=== PATIENT | male | born 1990 | race Hispanic/Latino ===

== ENCOUNTER 2023-07-25 12:30 | Observation (INO) | payer OTHER, SELFPAY ==
[2023-07-25] VITALS (12 sets, daily range): BP systolic 109–131; BP diastolic 53–71; PULSE 71–102; RESP 14–18; TEMP 36.6–37.7; O2SAT 96–100; BMI 29.3; BMI 29.9
--- NOTE | 2023-07-25 12:45 | CT_ITS ---
STUDY: CT ABDOMEN AND PELVIS WITH CONTRAST REASON FOR EXAM: Male, 32 years old. Right lower quadrant pain RADIATION DOSAGE (If Supplied By Facility): CTDIvol = ( 12.07 ) mGy, DLP = ( 573.80 ) mGycm TECHNIQUE: Transaxial images were obtained from the dome of the diaphragm to the symphysis pubis without oral contrast. IV 100mL Isovue-370 was administered. Sagittal and coronal images were reconstructed. Individualized dose optimization techniques were used for this CT. COMPARISON: None. FINDINGS: The visualized lung bases are unremarkable. The visualized portions of the heart are within normal limits. Normal liver. Normal gallbladder and extrahepatic biliary system. Normal spleen. Normal pancreas. Normal bilateral adrenal glands. Normal right kidney. Normal left kidney. Normal visualized stomach. Normal small intestine. Normal colon, hyperdensity within the cecum likely represents ingested medication. . There is a tubular, thick-walled appendix (>7mm), consistent with acute appendicitis. Additionally, there is evidence of a 5.5 mm appendicolith along with pericolonic inflammatory stranding and reactive right lower quadrant lymph nodes measuring less than 1 cm in short axis dimension. No perforation or abscess is noted. The abnormal appendix is seen on axial images 70-76 and coronal recon images 36-46 Normal abdominal aorta. Normal inferior vena cava. Normal retroperitoneum. Normal urinary bladder. Small amount of free fluid in the dependent pelvis. Normal abdominal wall. Normal osseous structures. CT/Abdomen/Pelvis W IV Cont ONLY IMPRESSION: Acute appendicitis with periappendiceal inflammation, likely reactive lymph nodes and appendicolith. No perforation or abscess noted. Surgical consultation recommended. N.B. : The above Results were Read Back by Elias Olvera MD to Sulaiman Cronin MD, and understanding confirmed on 07/25/2023 14:00:33 (ET). Electronically Signed: Elias Olvera MD at 14:01 EDT ,
[2023-07-25] MEDS: 0.9% Normal Saline (1000mL) 1,000 ML 999 ML IV (12:56)
[2023-07-25] MEDS: Ondansetron 4 MG/2 ML Vial IV (12:56)
[2023-07-25] MEDS: Ketorolac 15 MG/ML Vial IV ×2 (12:56→18:19)
[2023-07-25 13:08] LABS: Absolute Lymphocyte Count 1.97 X10^3/uL (0.83-4.51); Absolute Neutrophil Count 12.4 X10^3/uL (2.0-7.7); Basophil# 0.02 X10^3/uL; Basophil% 0.1 % (0-1); Eosinophil# 0.02 X10^3/uL; Eosinophils% 0.1 % (0-5); Hematocrit 43.4 % (40-54); Hemoglobin 14.9 g/dL (13.0-16.5); Lymphocyte # 1.97 X10^3/ul (0.83-4.51); Lymphocyte % 12.7 % (19-41); Mean Corp Hgb Conc 34.3 g/dL (32-36); Mean Corpuscular Volume 84.6 fL (80-94); Mean Platelet Vol. 9.9 fl (6.2-12.0); Monocyte# 1.07 X10^3/uL; Monocyte% 6.9 % (0-10); NRBC Flagged by Analyzer 0 % (0-5); Neutrophil # 12.41 X10^3/uL (2.7-7.7); Neutrophil % 79.9 % (47-70); Platelet Count 210 K/mm3 (150-450); RBC Distribution Width CV 12.1 % (11.6-14.6); RBC Distribution Width SD 37.2 fl (35.1-43.9); Red Blood Count 5.13 M/mm3 (4.6-6.2); White Blood Count 15.5 K/mm3 (4.4-11.0)
--- NOTE | 2023-07-25 13:09 | EDS_ITS ---
HPI <EFRAIN Ya - Last Filed: 07/25/23 14:44> History of Present Illness Chief Complaint: Abd Pain Narrative Narrative: 32-year-old male with no significant medical history who presents to the emergency department 3 days of worsening pain of the right lower abdomen. Patient states that the pain has become more constant, he has lost his appetite, patient eats when he walks is worse. He went to the [facility] clinic across the street, he was referred here to the emergency department for further workup. Patient denies any nausea or vomiting, fever or chills. Patient states he does have decreased appetite, as well as pain worse with moving. PFSH <EFRAIN Ya - Last Filed: 07/25/23 14:44> [facility] Medical History no medical history Home Medications ?Medication ?Instructions ?Recorded ?Last Taken ?Type omeprazole 20 mg capsule,delayed 20 mg PO DAILY 07/25/23 Unknown History release Allergy/AdvReac Type Severity Reaction Status Date / Time No Known Allergies Allergy Verified 07/25/23 12:31 Surgical History no surgical history Social History Smoking Status: Never smoker ROS <EFRAIN Ya - Last Filed: 07/25/23 14:44> ROS ED ROS Narrative Constitutional: Negative for fever, chills, weight loss, weakness Eyes: Negative for vision loss, vision change, double vision ENT: Negative for any sore throat, ear pain, congestion Cardiovascular: Negative for any chest pain, tightness, palpitations Respiratory: Negative for any cough, sputum production, hemoptysis, dyspnea, dyspnea on exertion, orthopnea Gastrointestinal: Negative for any nausea, vomiting, diarrhea, constipation, blood in stool, blood in vomit. Positive for abdominal pain, lack of appetite : Negative for any urinary frequency, dysuria, retention, blood in urine Muscle skeletal: Negative for any neck pain, back pain Neurological: Negative for any headache, syncope, dizziness Skin: Negative for any rashes, itching, abrasions, lacerations Psychiatric: Negative for any depression, anxiety, stress, suicidal ideation, homicidal ideation Hematologic: Negative for any excessive bruising, easy bleeding EXAM <EFRAIN Ya - Last Filed: 07/25/23 14:44> Physical Exam Narrative Exam Narrative: Vital signs reviewed. HEET: Head normocephalic atraumatic, TMs clear bilaterally. Posterior pharynx is clear, moist mucous membranes. Nares clear bilaterally. Neck: Supple with no lymphadenopathy or tenderness. No signs of meningismus. Cardiac: Regular rate and rhythm no murmurs gallops or rubs, equal peripheral pulses bilaterally. Respiratory: Lungs clear to auscultation bilaterally. No chest tenderness. Abdomen: Soft, tenderness to the right lower quadrant, no peritoneal signs, nondistended. No abdominal bruit or pulsatile masses. No hepatosplenomegaly Extremities: No peripheral edema, no signs of gross trauma or deformity. Active full range of motion of all extremities. Neuro: Cranial nerves II through XII intact, no focal neurological deficits. Skin: Clean dry and intact with no rash, purpura, petechiae, vesicles or pustules. Backs/flank: No CVA tenderness, no midline spinal tenderness, no deformity. Psych: Normal mood and affect. No SI, HI or acute psychosis. Const Vital Signs: 07/25/23 12:31 07/25/23 14:11 Temperature 98.8 F 98.6 F Temperature Source Temporal Oral Pulse Rate 102 H 94 Respiratory Rate 18 14 Blood Pressure 129/63 H 120/65 Blood Pressure Mean 85 83 Blood Pressure Source Monitor Blood Pressure Position Supine Blood Pressure Location Right Arm Pulse Ox 98 96 Oxygen Delivery Method Room Air Room Air <Dr. Samson Brown DO - Last Filed: 07/25/23 14:42> Physical Exam Const Vital Signs: 07/25/23 12:31 07/25/23 14:11 Temperature 98.8 F 98.6 F Temperature Source Temporal Oral Pulse Rate 102 H 94 Respiratory Rate 18 14 Blood Pressure 129/63 H 120/65 Blood Pressure Mean 85 83 Blood Pressure Source Monitor Blood Pressure Position Supine Blood Pressure Location Right Arm Pulse Ox 98 96 Oxygen Delivery Method Room Air Room Air LILLY <EFRAIN Ya - Last Filed: 07/25/23 14:44> [facility] Lab Data Labs: Laboratory Results - last 24 hr 07/25/23 12:55 WBC 15.5 H RBC 5.13 Hgb 14.9 Hct 43.4 MCV 84.6 MCH 29.0 MCHC 34.3 RDW Std Deviation 37.2 RDW Coeff of Glynn 12.1 Plt Count 210 MPV 9.9 Immature Gran % (Auto) 0.300 Neut % (Auto) 79.9 H Lymph % (Auto) 12.7 L Millard % (Auto) 6.9 Eos % (Auto) 0.1 Baso % (Auto) 0.1 Absolute Neuts (auto) 12.4 H Absolute Lymphs (auto) 1.97 Nucleated RBC % 0 Sodium 137 Potassium 3.8 Chloride 103 Carbon Dioxide 26.0 Anion Gap 8 BUN 15 Creatinine 0.92 Estim Creat Clear Calc 111.28 Est GFR (MDRD) Af Amer 122 Est GFR (MDRD) Non-Af 100 BUN/Creatinine Ratio 16.3 Glucose 116 H Calcium 8.6 Total Bilirubin 0.80 AST 18 ALT 30 Alkaline Phosphatase 96 Total Protein 7.6 Albumin 3.7 Globulin 3.9 Albumin/Globulin Ratio 0.9 Lipase 30 Radiography Diagnostic Testing: Clinical Impression(s) from Imaging Studies Abdomen/Pelvis CT 07/25/23 12:45 IMPRESSION: Acute appendicitis with periappendiceal inflammation, likely reactive lymph nodes and appendicolith. No perforation or abscess noted. Surgical consultation recommended. N.B. : The above Results were Read Back by Elias Olvera MD to Sulaiman Cronin MD, and understanding confirmed on 07/25/2023 14:00:33 (ET). Electronically Signed: Elias Olvera MD at 14:01 EDT , ADDENDUM: 07/25/23 1408 IMPRESSION: Acute appendicitis with periappendiceal inflammation, likely reactive lymph nodes and appendicolith. No perforation or abscess noted. Surgical consultation recommended. N.B. : The above Results were Read Back by Elias Olvera MD to Sulaiman Cronin MD, and understanding confirmed on 07/25/2023 14:00:33 (ET). Electronically Signed: Elias Olvera MD at 14:01 EDT , Treatment and Re-Evaluation :: Differential diagnosis includes however is not limited to: Acute appendicitis, diverticulitis, bowel obstruction, GI viral illness, Patient appears to be in no obvious respiratory distress vital signs are stable, patient is nontoxic-appearing. Presenting to the emergency department with 3 days of worsening right lower quadrant abdominal pain. Patient will receive basic laboratory values including CBC CMP lipase, patient will receive IV fluids, Zofran and Toradol. CT scan of the abdomen pelvis with IV contrast will be obtained looking for any surgical emergency. All radiologic examinations were read, reviewed by the emergency department attending. From these reads, a plan of care will be put in place. Patient's laboratory values showed a leukocytosis with a white blood count of 15.5, patient's glucose 116, lipase of 30. Patient CT scan shows acute appendicitis with periappendiceal inflammation, likely reactive lymph nodes and appendicolith. No perforation or abscess noted. I spoke with Dr. Marlen Bourne who will come and see the patient. Patient started on IV Zosyn. <Dr. Samson Brown, DO - Last Filed: 07/25/23 14:42> [facility] History & Record Review Discussion w/independent historian: Patient Lab Data Attestation: I reviewed the patient's lab results. Labs: Laboratory Results - last 24 hr 07/25/23 12:55 WBC 15.5 H RBC 5.13 Hgb 14.9 Hct 43.4 MCV 84.6 MCH 29.0 MCHC 34.3 RDW Std Deviation 37.2 RDW Coeff of Glynn 12.1 Plt Count 210 MPV 9.9 Immature Gran % (Auto) 0.300 Neut % (Auto) 79.9 H Lymph % (Auto) 12.7 L Millard % (Auto) 6.9 Eos % (Auto) 0.1 Baso % (Auto) 0.1 Absolute Neuts (auto) 12.4 H Absolute Lymphs (auto) 1.97 Nucleated RBC % 0 Sodium 137 Potassium 3.8 Chloride 103 Carbon Dioxide 26.0 Anion Gap 8 BUN 15 Creatinine 0.92 Estim Creat Clear Calc 111.28 Est GFR (MDRD) Af Amer 122 Est GFR (MDRD) Non-Af 100 BUN/Creatinine Ratio 16.3 Glucose 116 H Calcium 8.6 Total Bilirubin 0.80 AST 18 ALT 30 Alkaline Phosphatase 96 Total Protein 7.6 Albumin 3.7 Globulin 3.9 Albumin/Globulin Ratio 0.9 Lipase 30 Radiography Diagnostic Testing: Clinical Impression(s) from Imaging Studies Abdomen/Pelvis CT 07/25/23 12:45 IMPRESSION: Acute appendicitis with periappendiceal inflammation, likely reactive lymph nodes and appendicolith. No perforation or abscess noted. Surgical consultation recommended. N.B. : The above Results were Read Back by Elias Olvera MD to Sulaiman Cronin MD, and understanding confirmed on 07/25/2023 14:00:33 (ET). Electronically Signed: Elias Olvera MD at 14:01 EDT , ADDENDUM: 07/25/23 1408 IMPRESSION: Acute appendicitis with periappendiceal inflammation, likely reactive lymph nodes and appendicolith. No perforation or abscess noted. Surgical consultation recommended. N.B. : The above Results were Read Back by Elias Olvera MD to Sulaiman Cronin MD, and understanding confirmed on 07/25/2023 14:00:33 (ET). Electronically Signed: Elias Olvera MD at 14:01 EDT , Management Discussion w/another healthcare provider: Adjunct Physics Instructor (Surgery (Dr. Collier)) Treatment and Re-Evaluation :: Differential diagnosis includes however is not limited to: Acute appendicitis, diverticulitis, bowel obstruction, GI viral illness, Patient appears to be in no obvious respiratory distress vital signs are stable, patient is nontoxic-appearing. Presenting to the emergency department with 3 days of worsening right lower quadrant abdominal pain. Patient will receive basic laboratory values including CBC CMP lipase, patient will receive IV fluids, Zofran and Toradol. CT scan of the abdomen pelvis with IV contrast will be obtained looking for any surgical emergency. All radiologic examinations were read, reviewed by the emergency department attending. From these reads, a plan of care will be put in place. Patient's laboratory values showed a leukocytosis with a white blood count of 15.5, patient's glucose 116, lipase of 30. Patient CT scan shows acute appendicitis with periappendiceal inflammation, likely reactive lymph nodes and appendicolith. No perforation or abscess noted. I spoke with Dr. Marlen Bourne who will come and see the patient. Patient started on IV Zosyn. I have personally performed a face to face assessment of the patient and have reviewed the [facility] Note. I performed a substantive portion of the visit including all aspects of the following. My lopez findings include: History is 32-year-old male with states on Thursday evening after eating spicy dinner began to have some periumbilical pain. Pain is now migrated to the right lower quadrant. He was seen in urgent care yesterday and was started on ome prazole. He states the pain continues. He is worried about appendicitis. No fevers. Exam is guarding rebound tenderness in the right lower quadrant. Patient otherwise clinically appears well. Medical Decison Making CT is consistent with acute appendicitis. He has a 15,000 white count. Plan is to discuss with surgery and taken to the operating room. Antibiotics were ordered. Discharge Plan Dx/Rx/DC Orders Clinical Impression: Acute appendicitis, Abdominal pain Disposition Disposition: Acute Care Hospital [facility]
[2023-07-25 13:19] LABS: ALB/GLOB Ratio 0.9 RATIO (0.9-2.4); AST(SGOT) 18 U/L (15-37); Alanine Aminotransfer ALT/SGPT 30 U/L (16-61); Albumin, Serum 3.7 g/dL (3.2-5.0); Alkaline Phosphatase 96 U/L (45-117); Anion Gap 8 (5-15); BUN 15 mg/dL (7-18); BUN/Creat Ratio 16.3 RATIO (10-20); Calcium,Total 8.6 mg/dL (8.5-10.1); Chloride 103 mmol/L (98-107); Creatinine, Serum 0.92 mg/dL (0.70-1.30); EST Glomerular Filtration Rate 100 mL/min (>60); Est Glom Filt Rate - Afr Amer 122 mL/min (>60); Estimated Creatinine Clearance 111.28 ml/min; Globulin 3.9 g/dL (2.2-4.2); Glucose 116 mg/dL (74-106); Lipase 30 U/L (13-75); Potassium 3.8 mmol/L (3.5-5.1); Protein, Total 7.6 g/dL (6.4-8.2); Sodium Level 137 mmol/L (136-145)
[2023-07-25] MEDS: Piperacil/Tazobactam 4.5 GM in 0.9% Normal Saline (100mL MB+) 100 ML IV (14:09)
--- NOTE | 2023-07-25 14:49 | PCM.HP.STD ---
HPI - General HPI Narrative PRERNA NAVARRETE, is a 32 M who presents with abdominal pain of 3 days. He reports that it yesterday he felt a little warm but other than that denies fevers or chills. He reports no nausea or vomiting. Pain is in the right lower quadrant. PFSH Medical History no medical history Home Medications ?Medication ?Instructions ?Recorded ?Last Taken ?Type omeprazole 20 mg capsule,delayed 20 mg PO DAILY 07/25/23 Unknown History release Allergy/AdvReac Type Severity Reaction Status Date / Time No Known Allergies Allergy Verified 07/25/23 12:31 Surgical History no surgical history Social History Smoking Status: Never smoker ROS Constitutional Constitutional: Reports anorexia; Denies fever(s) Eyes Eyes: Denies blurry vision ENT HEENT: Denies abnormal hearing Cardiovascular Cardiovascular: Denies chest pain Respiratory/Chest Respiratory/Chest: Denies cough or dyspnea Gastrointestinal Gastrointestinal: Reports abdominal pain; Denies nausea or vomiting Genitourinary Genitourinary: Denies change in urinary stream Musculoskeletal Musculoskeletal: Denies abnormal gait Neurologic Neurologic: Denies abnormal gait Psychiatric Psychiatric: Denies anxiety Endocrine Endocrinology: Denies heat intolerance Vital Signs Vital Signs Vital Signs: 07/25/23 12:31 07/25/23 14:11 Temperature 98.8 F 98.6 F Temperature Source Temporal Oral Pulse Rate 102 H 94 Respiratory Rate 18 14 Blood Pressure 129/63 H 120/65 Blood Pressure Mean 85 83 Blood Pressure Source Monitor Blood Pressure Position Supine Blood Pressure Location Right Arm Pulse Ox 98 96 Oxygen Delivery Method Room Air Room Air Weight Weight: 176 lb 4.8 oz Body Mass Index (BMI) 29.3 Physical Exam Const oriented x3 and no apparent distress Resp normal respiratory effort GI soft to palpation Palpation: tender RLQ and Rovsing's sign Extremity normal to inspection Results Lab / Micro Data 07/25/23 12:55 07/25/23 12:55 Labs: Laboratory Results - last 24 hr 07/25/23 12:55: WBC 15.5 H, RBC 5.13, Hgb 14.9, Hct 43.4, MCV 84.6, MCH 29.0, MCHC 34.3, RDW Std Deviation 37.2, RDW Coeff of Glynn 12.1, Plt Count 210, MPV 9.9, Immature Gran % (Auto) 0.300, Neut % (Auto) 79.9 H, Lymph % (Auto) 12.7 L, Guadalupe % (Auto) 6.9, Eos % (Auto) 0.1, Baso % (Auto) 0.1, Absolute Neuts (auto) 12.4 H, Absolute Lymphs (auto) 1.97, Nucleated RBC % 0, Sodium 137, Potassium 3.8, Chloride 103, Carbon Dioxide 26.0, Anion Gap 8, BUN 15, Creatinine 0.92, Estim Creat Clear Calc 111.28, Est GFR (MDRD) Af Amer 122, Est GFR (MDRD) Non-Af 100, BUN/Creatinine Ratio 16.3, Glucose 116 H, Calcium 8.6, Total Bilirubin 0.80, AST 18, ALT 30, Alkaline Phosphatase 96, Total Protein 7.6, Albumin 3.7, Globulin 3.9, Albumin/Globulin Ratio 0.9, Lipase 30 Imaging Radiology Impression Abdomen/Pelvis CT 07/25/23 12:45 IMPRESSION: Acute appendicitis with periappendiceal inflammation, likely reactive lymph nodes and appendicolith. No perforation or abscess noted. Surgical consultation recommended. N.B. : The above Results were Read Back by Elias Olvera MD to Sulaiman Cronin MD, and understanding confirmed on 07/25/2023 14:00:33 (ET). Electronically Signed: Elias Olvera MD at 14:01 EDT Reading Location ID and State: [address] [place] [address] , Service support , ADDENDUM: 07/25/23 1408 IMPRESSION: Acute appendicitis with periappendiceal inflammation, likely reactive lymph nodes and appendicolith. No perforation or abscess noted. Surgical consultation recommended. N.B. : The above Results were Read Back by Elias Olvera MD to Sulaiman Cronin MD, and understanding confirmed on 07/25/2023 14:00:33 (ET). Electronically Signed: Elias Olvera MD at 14:01 EDT , Assessment & Plan Assessment/Plan (1) Acute appendicitis: QUALIFIERS: Acute appendicitis type: unspecified acute appendicitis type Qualified Code(s): K35.80 - Unspecified acute appendicitis PLAN: The patient has been having right upper quadrant pain. He came to the emergency room was found to have leukocytosis. CT scan revealed acute appendicitis with fecalith. I reviewed his CT findings with him and recommended laparoscopic appendectomy. I discussed this with him in detail. I discussed the risks including but not limited to bleeding, infection, injury other organs around the appendix such as the bowel, bladder or ureter. Patient understands all the risks and is willing to proceed. Tyler Collier MD Pager: [facility] [address] [place] [address], [address] [place] [address] Office:
--- NOTE | 2023-07-25 15:20 | APP_PTH ---
PATIENT: PRERNA COOLEY LOC: MS3 U#:[id number] AGE/SX: 32/M ROOM: TX317 RE07/25/[address]: Dr. Tyler Collier MD : 1990 BED: 1 DIS: 07/26/2023 SPEC #: [id number] RECD: 07/28/23 09:53 STATUS: [place] #: [id number] PALMA: 07/25/23 15:[address]: Tyler Collier DEPT: SURGICAL PATHOLOGY RECD BY: eRnzo Varghese ENTERED: 07/28/23 13:13 SP TYPE: APPENDIX OTHR DR: No Primary Care Phys Tissues: Appendix, NOS Procedures: Surgery Specimen Level III HEADER OPERATION: Laparoscopic, appendectomy PRE-OP DIAGNOSIS: Acute appendicitis TISSUE SUBMITTED: Appendix MICROSCOPIC DIAGNOSIS Appendix, appendectomy: Acute necrotizing appendicitis. Acute serositis. AM/mr 07/29/2023 MICROSCOPIC DESCRIPTION Slides are reviewed. GROSS DESCRIPTION Received in fixative is one container labeled with the patient's name and designated appendix. The specimen consists of a vermiform appendix measuring 7.5 cm in length and 1.0 cm in average diameter. No gross perforations are evident. Serial sections reveal a patent lumen with fecal material. No mass lesion is identified. Heddle Machine Operator sections are submitted in one cassette. / AM: 07/28/2023 TC:2 CPT: 98711
[2023-07-25] MEDS: Bupiv/Epi 0.25% 30 ML Vial (15:40)
--- NOTE | 2023-07-25 15:44 | OP.PCM_ITS ---
Report of Operation Date of Procedure: 07/25/23 Pre-Operative Diagnosis: Acute appendicitis Post-Operative Diagnosis: Same Surgery/Procedure Performed:: Laparoscopic appendectomy Description of Surgical Findings:: Inflamed appendix Type of Anesthesia: General/Regional Specimen's removed: Appendix Estimated Blood Loss (mL): 5 Description of Procedure: The patient was brought into the operating room and general anesthesia was induced. The left arm was tucked and the abdomen was prepped and draped in usual sterile fashion. A small midline incision was made superior to the umbilicus and deepened to the level of the fascia. The fascia was elevated and incised. The peritoneum was also elevated and incised. A finger sweep was performed and a balloon trocar was placed into the abdomen and inflated. The abdomen was insufflated to 15 mmHg and the camera was inserted and the abdomen was inspected for any injuries upon entering the abdomen. There were none. The patient was placed in Trendelenburg position and a 5 mm ports placed in the left lower quadrant and suprapubic areas under direct visualization. Next using atraumatic bowel graspers the appendix was identified. The appendix was grasped and elevated and Enseal was used to take down the mesoappendix. A stapler was used to come across the base of the appendix. The appendix was then placed in Endo Catch bag and removed through the umbilical incision. The staple line was inspected and found to be hemostatic and intact. The 2 5 mm ports are removed under direct visualization. The balloon trocar was deflated and removed and all the air was removed from the abdomen. The umbilical incision fascia was closed with an 0 Vicryl [id number] suture. The incisions were then irrigated with saline and dried. Local anesthetic was injected into the incision sites. The skin incisions were then closed with interrupted 4-0 Monocryl suture and Steri- Strips. Bandages were applied and the patient was awoken and taken to PACU in stable condition. Patient tolerated the procedure well. Admit VTE Documentation VTE Mechan Device Prophylaxis: SCD's
[2023-07-25] MEDS: 0.9% Saline Lock 10 ML Syringe IV (18:19)
[2023-07-25] MEDS: 0.9% Normal Saline (1000mL) 1,000 ML 60 ML IV (18:19)
[2023-07-26 03:29] VITALS: BP 100/56; PULSE 81; RESP 14; TEMP 37.7; O2SAT 94
[2023-07-26] MEDS: Acetaminophen 325 MG Tablet 650 MG PO ×2 (07:54→13:34)
[2023-07-26] MEDS: Pantoprazole Sodium 20 MG Tablet PO (07:55)
--- NOTE | 2023-07-26 07:58 | PCM.PN.SRG ---
Subjective Subjective Patient reports he is having some abdominal pain but denies nausea or vomiting. He is passing flatus. Objective Data Objective Data Vital Signs: Vital Signs Temp Pulse Resp BP Pulse Ox O2 Del Method 99.8 F H 81 14 100/56 L 94 Room Air 07/26/23 03:29 07/26/23 03:29 07/26/23 03:29 07/26/23 03:29 07/26/23 03:29 07/26/23 03:29 Oxygen Delivery Method Room Air Weight: 180 lb Body Mass Index (BMI) 29.9 Intake & Output: Intake and Output for Last 24 Hours 07/24/23 07/25/23 07/26/23 23:59 23:59 23:59 Intake Total 1340 / 1340 Balance 1340 / 1340 Lab / Micro Data 07/25/23 12:55 07/25/23 12:55 Labs: Laboratory Results - last 24 hr 07/25/23 12:55: WBC 15.5 H, RBC 5.13, Hgb 14.9, Hct 43.4, MCV 84.6, MCH 29.0, MCHC 34.3, RDW Std Deviation 37.2, RDW Coeff of Glynn 12.1, Plt Count 210, MPV 9.9, Immature Gran % (Auto) 0.300, Neut % (Auto) 79.9 H, Lymph % (Auto) 12.7 L, Gladwin % (Auto) 6.9, Eos % (Auto) 0.1, Baso % (Auto) 0.1, Absolute Neuts (auto) 12.4 H, Absolute Lymphs (auto) 1.97, Nucleated RBC % 0, Sodium 137, Potassium 3.8, Chloride 103, Carbon Dioxide 26.0, Anion Gap 8, BUN 15, Creatinine 0.92, Estim Creat Clear Calc 111.28, Est GFR (MDRD) Af Amer 122, Est GFR (MDRD) Non-Af 100, BUN/Creatinine Ratio 16.3, Glucose 116 H, Calcium 8.6, Total Bilirubin 0.80, AST 18, ALT 30, Alkaline Phosphatase 96, Total Protein 7.6, Albumin 3.7, Globulin 3.9, Albumin/Globulin Ratio 0.9, Lipase 30 Radiography Diagnostic Testing: Radiology Impression Abdomen/Pelvis CT 07/25/23 12:45 IMPRESSION: Acute appendicitis with periappendiceal inflammation, likely reactive lymph nodes and appendicolith. No perforation or abscess noted. Surgical consultation recommended. N.B. : The above Results were Read Back by Elias Olvera MD to Sulaiman Cronin MD, and understanding confirmed on 07/25/2023 14:00:33 (ET). Electronically Signed: Elias Olvera MD at 14:01 EDT , ADDENDUM: 07/25/23 1408 IMPRESSION: Acute appendicitis with periappendiceal inflammation, likely reactive lymph nodes and appendicolith. No perforation or abscess noted. Surgical consultation recommended. N.B. : The above Results were Read Back by Elias Olvera MD to Sulaiman Cronin MD, and understanding confirmed on 07/25/2023 14:00:33 (ET). Electronically Signed: Elias Olvera MD at 14:01 EDT , Physical Exam Const oriented x3 and no apparent distress Resp clear to auscultation bilaterally GI soft to palpation Inspection: Negative for abdominal distention Palpation: tender Assessment & Plan Assessment/Plan (1) Acute appendicitis: QUALIFIERS: Acute appendicitis type: unspecified acute appendicitis type Qualified Code(s): K35.80 - Unspecified acute appendicitis PLAN: The patient seems to be doing well. He is still little bit tender. As long as he tolerates a diet today I will discharge home this afternoon. Tyler Collier MD Pager: [facility] [address] [place] [address], [address] [place] [address] Office:
--- NOTE | 2023-07-26 07:59 | DCINST_ITS ---
Discharge Instructions Procedure Appendectomy Diet Discharge Diet: Light diet - advance as tolerated Activity Discharge Activity: May Not Drive (for 2-3 days or while taking narcotic pain medications.) May shower in (days): 1 Lifting Restrictions: 20 lbs for 2 weeks Dressing / Incision Call your doctor if your incision/area has: Continuous Slow Oozing, Sudden Increased Bleeding, Increased Pain/ Swelling, Increased Redness and Foul Smelling Discharge Call your doctor if you observe: Fever of 101 or Higher Suture Line Care: Avoid Pulling/Pushing and Avoid Pinching/Bending Remove Dressing in: 2 days Cleanse incision/area with: Soap & Water Additional Dressing/Incision Instructions:: Keep dressing clean and dry. Change or remove dressing in 2 days. Leave steri strips for 1 week. May protect with a gauze bandaid. Follow Up Care Please Follow Up With: Tyler Collier MD When: Please call to schedule 2 week follow up appointment. [phone] Test Results: Test results from this visit will be discussed in further detail at your follow- up appointment, if applicable. Discharge Plan Admission Admit Date/Time: 07/25/23 15:45 Attending Provider: Tyler Collier Primary Care Provider: Care Physician,No Primary Discharge Orders/Prescriptions Prescriptions: New oxycodone 5 mg Tablet 5 - 10 mg PO Q4H PRN PRN (Reason: Pain Score 4-10) 5 Days Qty: 10 0RF Continued omeprazole 20 mg capsule,delayed release(DR/EC) 20 mg PO DAILY Referrals / Follow Up: Care Physician,No Primary [Primary Care Provider] - Disposition Disposition (needs filled in before D/C Order can be placed): Home, Self Care
[2023-07-26 08:02] VITALS: BP 116/67; PULSE 81; RESP 14; TEMP 36.8; O2SAT 97
[2023-07-26] MEDS: oxyCODONE 5 MG Tablet PO (13:34)
[2023-07-26 14:00] VITALS: BP 108/60; PULSE 73; RESP 13; TEMP 36.9; O2SAT 96
== END 2023-07-26 14:00 | disposition home or self-care (01) ==
LOC: ED 14:25 → SDC 15:03 → AC 15:03 → SDC 16:40 → MS3 16:41
PROVIDERS: Nurse Practitioner; Admitting Provider Surgery; Emergency Provider Emergency Medicine; Visit Provider Surgery
PROC: 0DTJ4ZZ Resection of Appendix, Percutaneous Endoscopic Approach (ICD-10-PCS; CPT 44970; principal; 2023-07-25 15:00)
DX: K35.80 Unspecified acute appendicitis (principal)
CPT/HCPCS: 44970; 00840; 74177; 80053; 83690; 85025; 88304; 96365; 96375; 96376; 99221; 99284; J7030; Q9967; A4216; C1760; G0378; J2405